=== PATIENT | female | born 1940 | race Caucasian/White ===

== ENCOUNTER → 2016-09-09 | Outpatient (CLI) | payer OTHER, MEDICARE ==
[~2016-09-09] MED LIST: GADOBUTROL 10 ML VIAL IVP ONE; GLUCAGON,HUMAN RECOMBINANT 0.3 MG in SYRINGE 0.3 ML IVP ONE
--- NOTE | 2016-09-09 19:22 | MR ---
MR Enterography (Abdomen and Pelvis), Without and With IV Contrast Indication: Crohn disease. Surveillance. Technique: Standard MR enterography protocol utilizing T2 and multiplanar T1 without and with contra st, with fat suppression. Patient received 5 mL Gadavist intravenously, without complication. Patie nt received a total dose of 0.6 mg glucagon intravenously to minimize bowel peristalsis/motion artifa ct. Patient ingested 700 mL of negative oral contrast agent. Comparison: MR enterography dated July 02, 2015. Findings: The redundant colon containing a large volume of stool is unchanged. No acute colonic inf lammation, stricture, or mass. The small bowel pattern is normal caliber, with normal wall thickness and pattern. No abnormal edema , stricture, or enhancement. No free fluid, abscess, or fistula formation has developed. No enlarge d lymph nodes or mass. The liver, spleen, pancreas, adrenal glands, and kidneys are normal. The gallbladder is normal. No intraluminal stones or sludge. No common bile duct stone. The normal caliber common bile duct ondina lly tapers to the major papilla. A benign 8-mm cyst in the right lobe of the liver is unchanged. Levocurvature of the lumbar spine and mild multilevel degenerative disk disease is unchanged. No acu te fracture or bone marrow-replacing lesion. Impression: 1. Constipation and redundant colon, similar to 2015. 2. No evidence of active enteritis or bowel obstruction. No complication of Crohn disease has devel oped. 3. Normal solid organs. No cholelithiasis or biliary dilation. 4. Levocurvature and degenerative disk disease in the mid lumbar spine are unchanged.
== END ==
LOC: FIMAGING 10:58
PROVIDERS: ATTEND Internal Medicine Gastroenterology
DX: K59.00 Constipation, unspecified (principal); K50.019 Crohn's disease of small intestine with unspecified complications
CPT/HCPCS: 72196; 74182; A9585; J1610

== ENCOUNTER → 2018-04-12 | Outpatient (CLI) | payer OTHER, MEDICARE ==
[~2018-04-12] MED LIST changes: +GLUCAGON HCL 0.3 MG in SYRINGE 0.3 ML IVP ONE; -GLUCAGON,HUMAN RECOMBINANT 0.3 MG in SYRINGE 0.3 ML IVP ONE
== END ==
LOC: FIMAGING 14:53
PROVIDERS: ATTEND Internal Medicine Gastroenterology
DX: K50.019 Crohn's disease of small intestine with unspecified complications (principal); K59.00 Constipation, unspecified; N28.1 Cyst of kidney, acquired
CPT/HCPCS: 72196; 74182; A9585; J1610

== ENCOUNTER → 2018-10-22 | Outpatient (CLI) | payer OTHER, MEDICARE | LOC: FIMAGING 07:45 | DX: M96.1 Postlaminectomy syndrome, not elsewhere classified (principal); M51.36 Other intervertebral disc degeneration, lumbar region; M48.061 Spinal stenosis, lumbar region without neurogenic claudication; M48.07 Spinal stenosis, lumbosacral region; M41.9 Scoliosis, unspecified; M51.24 Other intervertebral disc displacement, thoracic region; M51.34 Other intervertebral disc degeneration, thoracic region; M50.30 Other cervical disc degeneration, unspecified cervical region; M48.02 Spinal stenosis, cervical region; Z98.1 Arthrodesis status ==